=== PATIENT | female | born 1955 | race Caucasian/White ===

== ENCOUNTER 2024-02-06 11:19 | Emergency (ER) | payer MEDICARE, OTHER, SELFPAY ==
[2024-02-06 11:43] VITALS: BP 135/96; PULSE 91; RESP 16; TEMP 36.6; O2SAT 97
[2024-02-06 11:45] VITALS: BP 135/96; PULSE 91; RESP 16; TEMP 36.6; O2SAT 97
--- NOTE | 2024-02-09 13:58 | ED.FEMALEGU ---
HPI - Female Genitourinary General Chief complaint: Urogenital-Female Stated complaint: Bladder Infection/Upper Respiratory Symptoms Time Seen by Provider: 02/06/24 12:00 Source: patient Mode of arrival: ambulatory Limitations: no limitations History of Present Illness HPI Narrative: 68-year-old female presents with complaint of urinary frequency, urgency, dysuria, blood in urine for 5 days. Afebrile. Denies nausea vomiting. Patient also reports head congestion, nasal congestion, cough for 3 days. No chest pain or shortness of breath. Taking [id number] cough and cold medicine to treat symptoms. All systems reviewed and negative except as noted above. Related Data Home Medications Medication Instructions Recorded Confirmed amlodipine 5 mg-benazepril 20 mg 1 cap PO DAILY 02/06/24 02/06/24 capsule (Lotrel) bupropion HCl 300 mg 24 hr tablet, 300 mg PO DAILY 02/06/24 02/06/24 extended release duloxetine 60 mg capsule,delayed 60 mg PO DAILY 02/06/24 02/06/24 release ergocalciferol (vitamin D2) 1,250 1,250 mcg PO DAILY 02/06/24 02/06/24 mcg (50,000 unit) capsule escitalopram oxalate 10 mg tablet 10 mg PO DAILY 02/06/24 02/06/24 gabapentin 300 mg capsule 300 mg PO DAILY 02/06/24 02/06/24 rizatriptan 10 mg tablet 10 mg PO DAILY 02/06/24 02/06/24 spironolactone 25 mg tablet 25 mg PO DAILY 02/06/24 02/06/24 tramadol 50 mg tablet 50 mg PO PRN PRN Moderate Pain 02/06/24 02/06/24 (Scale Score 5-6) trazodone 50 mg tablet 50 mg PO HS 02/06/24 02/06/24 Allergies Allergy/AdvReac Type Severity Reaction Status Date / Time valacyclovir [From Valtrex] Allergy Unknown Verified 02/06/24 11:51 Review of Systems Review of Systems: CONSTITUTIONAL: Denies fever, chills, or sweats. EYES: Denies visual changes, redness, or discharge. ENT: reports rhinorrhea, congestion. Denies sore throat, or otalgia. CARDIOVASCULAR: Denies chest pain, palpitations, or edema. RESPIRATORY: Reports cough. Denies dyspnea. GASTROINTESTINAL: Denies abdominal pain, nausea, vomiting, or diarrhea. GENITOURINARY: reports dysuria, frequency, hematuria. SKIN: Denies rash or itching. MUSCULOSKELETAL: Denies back pain, joint pain, or myalgia. NEUROLOGIC: Denies headache, numbness, or weakness. PSYCHIATRIC: Denies anxiety or depression. All other systems reviewed are negative, except as documented in HPI. PMFSH Comments At time of signature, agree with nursing past medical, surgical, social and family history. There is no relevant family history pertinent to the presenting complaint. Exam Narrative: GENERAL: This is a well-nourished, well-developed patient, in no apparent distress. HEAD: normocephalic, atraumatic. EYES: PERRL. Sclera clear/white. Vision is grossly intact. EARS: External ears normal, auditory canals clear and without drainage, TMs normal without perforation. Hearing grossly intact. NOSE: External nose normal with clear nasal drainage, mild congestion. THROAT: Mucous membranes moist, posterior pharynx clear. NECK: Neck supple, non-tender without lymphadenopathy, masses or thyromegaly. CARDIOVASCULAR: Regular rate and rhythm without murmurs, gallops, or rubs. RESPIRATORY: Clear to auscultation. Breath sounds equal bilaterally. No wheezes, rales, or rhonchi. SKIN: warm, Dry, intact with no suspicious lesions or rash, good texture and turgor. NEURO: awake, alert, and oriented to person, place and time. There were no obvious focal neurologic abnormalities. EXTREMITIES: No joint tenderness, effusion, or edema noted. No calf tenderness. Negative Homans sign bilaterally. BACK: No CVA tenderness. Course Course Level of Care: Express Care Visit Vital Signs Vital signs: Vital Signs Temperature 36.6 C 02/06/24 11:43 Pulse Rate 91 02/06/24 11:43 Respiratory Rate 16 02/06/24 11:43 Blood Pressure 135/96 H 02/06/24 11:43 Pulse Oximetry 97 02/06/24 11:43 Temperature 36.6 C 02/06/24 11:45 Pul
== END 2024-02-06 12:26 | disposition home or self-care (01) ==
PROVIDERS: Emergency Provider Nurse Practitioner Family
DX: N39.0 Urinary tract infection, site not specified (principal); J06.9 Acute upper respiratory infection, unspecified; Z20.822 Contact with and (suspected) exposure to COVID-19
CPT/HCPCS: 81003; 87086; 87088; 87426; 87804; 99213; G0463